=== PATIENT | female | born 1985 | race Native Hawaiian/Other Pacific Islander ===

== ENCOUNTER 2021-01-07 16:14 | Emergency (ER) | payer BC ==
[~2021-01-07] VITALS: Ht 162.6 cm; Wt 48.1 kg
[2021-01-07 16:14] VITALS: TEMP 98.1
[2021-01-07 16:42] LABS: PLATELET COUNT 244 K/uL (152-353)
[2021-01-07 16:49] LABS: POTASSIUM 3.8 mmol/L (3.6-5.2); SODIUM 138 mmol/L (136-145)
[2021-01-07 17:01] LABS: PARTIAL THROMBOPLASTIN TIME 24.7 SECONDS (24.5-33.6)
[2021-01-07 17:25] VITALS: BP 112/78
== END 2021-01-07 17:25 | disposition home or self-care (01) ==
LOC: ED 16:24
PROVIDERS: Hospitalist
DX: I47.1 Supraventricular tachycardia (principal)
CPT/HCPCS: 36415; 80053; 82550; 83880; 84484; 85027; 85610; 85730; 93005; 96360; 96375; 99284

== ENCOUNTER 2022-07-09 10:54 | Outpatient (CLI) | payer BC ==
[2022-07-09 13:10] LABS: PLATELET COUNT 230 K/uL (152-353)
== END 2022-07-09 23:18 | disposition home or self-care (01) ==
LOC: LABW 10:54 → US 10:54 → LABW 23:18
PROVIDERS: ATTEND Family Medicine
DX: O20.0 Threatened abortion (principal)
CPT/HCPCS: 36415; 80053; 84443; 84702; 85027

== ENCOUNTER 2022-07-11 10:49 | Outpatient (CLI) | payer BC | END 2022-07-11 20:41 | disposition home or self-care (01) | LOC: LABW 10:49 | PROVIDERS: ATTEND Specialist | DX: O20.0 Threatened abortion (principal) | CPT/HCPCS: 36415; 84702 ==

== ENCOUNTER 2022-09-09 13:43 | Outpatient (CLI) | payer BC | END 2022-09-09 19:04 | disposition home or self-care (01) | LOC: LABW 13:43 | PROVIDERS: ATTEND Specialist | DX: N92.6 Irregular menstruation, unspecified (principal) | CPT/HCPCS: 36415; 84702 ==

== ENCOUNTER 2022-09-13 10:40 | Outpatient (CLI) | payer BC | END 2022-09-13 19:16 | disposition home or self-care (01) | LOC: LABW 10:40 | PROVIDERS: ATTEND Specialist | DX: N92.6 Irregular menstruation, unspecified (principal) | CPT/HCPCS: 36415; 84702 ==